=== PATIENT | male | born 1975 | race Caucasian/White ===

== ENCOUNTER 2016-07-08 03:41 | Emergency (ER) | payer SELFPAY ==
[~2016-07-08] VITALS: Ht 165.1 cm; Wt 79.4 kg
--- NOTE | 2016-07-08 03:42 | NUR ---
PATIENT BROUGHT TO ER OF 03
[2016-07-08 03:43] VITALS: BP 170/134
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
--- NOTE | 2016-07-08 03:50 | NUR ---
Dr. Allison evaluating patient at bedside.
--- NOTE | 2016-07-08 03:50 | NUR ---
Norberto rojo in [facility] - 07/08/16 at 0350 by KIM Cholelithiasis
[2016-07-08 04:02] VITALS: BP 149/92
--- NOTE | 2016-07-08 04:02 | NUR ---
PATIENT BIB [facility]. PATIENT EXAMINED BY DR. PELLETIER. PATIENT MEDICALLY CLEARED AND RELEASED IN CUSTODY IN STABLE CONDITION. ORIGINAL PRE-BOOK FORM GIVEN TO OFFICER [place].
== END 2016-07-08 04:02 ==
LOC: MED 03:41
DX: T14.90 Injury, unspecified (principal); V47.5XXA Car driver injured in collision with fixed or stationary object in traffic accident, initial encounter; Y92.411 Interstate highway as the place of occurrence of the external cause; Y93.89 Activity, other specified; Y99.8 Other external cause status